=== PATIENT | male | born 1955 | race Caucasian/White ===

== ENCOUNTER 2021-05-06 14:12 | Outpatient (REF) | payer OTHER, SELFPAY ==
--- NOTE | ~2021-05-06 | XR_ITS ---
EXAMINATION: XR HAND, RIGHT CLINICAL INFORMATION: Contusion of right hand. COMPARISON: None TECHNIQUE: PA, lateral, and oblique views of the right hand. FINDINGS: The bones and soft tissues are normal. No fracture. Alignment is anatomic. Joint spaces are maintained. No erosions or soft tissue calcifications. XR/XR hand RT min 3V IMPRESSION: Unremarkable right hand.
== END 2021-05-06 14:13 | disposition home or self-care (01) ==
LOC: HO.HMGCX 14:12
PROVIDERS: PCP Internal Medicine; Visit Provider Internal Medicine
DX: S60.221A Contusion of right hand, initial encounter (principal)
CPT/HCPCS: 73130

== ENCOUNTER 2022-11-10 12:38 | Outpatient (AMB) | payer OTHER, SELFPAY ==
--- NOTE | 2022-11-10 13:19 | AM.OFFWIN_ITS ---
Intake Vital Signs 11/10/22 13:26 Weight 223 lb BP 128/68 Blood Pressure Location Rt brachial Position Sitting Pulse 82 Pulse Source Pulse Oximeter Temp 97.8 F Temp Source Temporal Artery Scan Pulse Oximetry (%) 97 Intake Visit Reasons: EST/both ears blocked Intake Note: pt is here for c/o of ear blockage Patient Tobacco Use Status: Never used Tobacco Allergies No Known Allergies Allergy (Verified 11/10/22 13:58) Medication List - Last Reconciled 11/10/22 by Tucker Reyes MD finasteride 5 mg PO QAM fluticasone propionate 110 mcg/actuation (Flovent HFA) 2 puffs PO BID gabapentin 300 mg PO BEDTIME hydrochlorothiazide 12.5 mg PO QAM ipratropium bromide 17 mcg/actuation (Atrovent HFA) 0 mcg inhalation meloxicam 7.5 mg PO DAILY naproxen 500 mg PO Q12H potassium chloride ER 10 mEq PO DAILY topiramate 50 mg PO BEDTIME Do you need a note to return to daycare/school/sports/work: Yes HPI EST/both ears blocked HPI Details 67-year-old male presents to the office for a sick visit. Patient is complaining of decreased hearing in both ears. [facility] Social History Patient Tobacco Use Status: Never used Tobacco Physical Exam Vital Signs: Last Vital Signs Temp 97.8 F 11/10/22 13:26 Pulse 82 11/10/22 13:26 BP 128/68 11/10/22 13:26 Pulse Ox 97 11/10/22 13:26 HEENT Other: Right and left ears: Ear canal is completely filled up with wax. Office Procedures Cerumen Removal From which ear canal was the cerumen removed: bilateral Removal: irrigation and otoscope w/curette Notes: patient tolerated procedure well [id number] Wax Removal by Spoon/Curette Assessment & Plan Assessment & Plan (1) Impacted cerumen of both ears: Code(s): H61.23 - Impacted cerumen, bilateral Plan: Patient tolerated the procedure well Orders: Orders AMB Cerumen Removal Today H61.23 - Impacted cerumen, bilateral Coding Level of Care Code Est Pt Level 3 (72374) Diagnoses Impacted cerumen of both ears H61.23 CPT Codes Office Procedure - CPT: 60911-Zit Wax Removal by Spoon/Curette ([id number])
[2022-11-10 13:26] VITALS: BP 128/68; PULSE 82; TEMP 36.6; O2SAT 97
== END 2022-11-10 15:01 | disposition home or self-care (01) ==
PROVIDERS: PCP Internal Medicine; Visit Provider Internal Medicine
DX: H61.23 Impacted cerumen, bilateral (principal)
CPT/HCPCS: 69210; 99212